=== PATIENT | male | born 1970 | race Caucasian/White ===

== ENCOUNTER 2017-03-30 22:58 | Inpatient (IN) | payer SELFPAY ==
[2017-03-30] MEDS ORDERED: TYLENOL PO STA (23:32)
[2017-03-30] MEDS ORDERED: NACL 0.9% 500 ML 500 ML IV ONE (23:32)
--- NOTE | 2017-03-31 00:01 | XRay Report ---
FINAL REPORT EXAM: XR CHEST 1V AP HISTORY: possible Sepsis TECHNIQUE: upright single view chest PRIORS: None. FINDINGS: Cardiac and mediastinal contours are unremarkable. No focal pulmonary infiltrate is identified. No pleural fluid collection seen. Pulmonary vasculature is unremarkable. IMPRESSION: Negative single-view chest
[2017-03-31 00:38] LABS: Basophils % (Auto) 0.4 % (0.0-1.8); Eosinophils % (Auto) 0.5 % (0.0-4.3); Hematocrit 40.3 % (35.5-45.6); Hemoglobin 13.6 gm/dl (11.8-15.2); Lymphocytes # (Auto) 1.2 K/mm3 (1.2-5.4); Lymphocytes % (Auto) 13.6 % (13.4-35.0); Mean Corpuscular HGB Conc 34 % (32-34); Mean Corpuscular Hemoglobin 30 pg (28-32); Mean Corpuscular Volume 90 fl (84-94); Monocytes % (Auto) 11.1 % (0.0-7.3); Platelet Count 186 K/mm3 (140-440); Red Blood Count 4.47 M/mm3 (3.65-5.03); Red Cell Distribution Width 13.2 % (13.2-15.2)
[2017-03-31 00:52] LABS: INR 0.9 (0.87-1.13)
[2017-03-31 00:54] LABS: Alanine Aminotransferase 55 units/L (7-56); Albumin 4.1 g/dL (3.9-5); BUN/Creatinine Ratio 20; Blood Urea Nitrogen 14 mg/dL (9-20); Calcium 9.6 mg/dL (8.4-10.2); Hemolysis Index 4
[2017-03-31 01:45] LABS: Bilirubin,Urine NEG (Negative); Blood,Urine SM (Negative); Color,Urine Straw (Yellow); Mucus,Urine FEW /HPF; Nitrite,Urine NEG (Negative); Urobilinogen,Urine < 2.0 mg/dL (<2.0); WBC,Urine < 1.0 /HPF (0.0-6.0)
[2017-03-31] MEDS ORDERED: SUBLIMAZE IV ONE (02:29)
[2017-03-31] MEDS ORDERED: NACL 0.9% 1000 ML 1,000 ML IV ONE (02:29)
[2017-03-31] MEDS ORDERED: ZOFRAN IV ONE (02:29)
[2017-03-31] MEDS ORDERED: TORADOL IV ONE (02:29)
--- NOTE | 2017-03-31 02:40 | Emergency Department Report ---
HPI - General Chief Complaint: Fever Time Seen by Provider: 03/31/17 02:18 - [facility] HPI: Room 3 The patient is a 47-year-old male presenting with chief complaint of flulike symptoms. The patient states for the past 5 days he's had a cough productive of green sputum and a sore throat. Patient denies rhinorrhea but admits to subjective fever, chills and myalgias. Patient denies nausea vomiting or diarrhea. The patient states there are other sick contacts in his home with the same symptoms. The patient currently gives his pain a score of 8/10 Location: [See above] Duration: 5 days Quality: Soreness Severity:8/10 Modifying factors: [see above] Context: [see above] Mode of transportation: [not driving] ED Past Medical Hx - Past Medical History Previous Medical History?: Yes Hx Hypertension: Yes - Surgical History Past Surgical History?: No - Family History Family history: no significant - Social History Smoking Status: Former Smoker (none 1 month) Substance Use Type: None (denies illicit drug use) ED Review of Systems ROS: Stated complaint: FEVER Other details as noted in HPI Constitutional: chills, fever, malaise ENT: throat pain Respiratory: cough Gastrointestinal: denies: nausea, vomiting, diarrhea Musculoskeletal: myalgia Physical Exam - Physical Exam Vital Signs: Vital Signs 03/30/17 03/31/17 03/31/17 23:26 01:15 01:20 Temperature 102.0 F H Pulse Rate 100 H Respiratory 20 16 Rate Blood Pressure 173/91 117/72 O2 Sat by Pulse 95 95 Oximetry 03/31/17 01:21 Temperature 99.6 F Pulse Rate Respiratory Rate Blood Pressure O2 Sat by Pulse Oximetry Physical Exam: GENERAL: The patient is well-developed well-nourished ill appearing and clammy male lying on stretcher HEENT: Normocephalic. Atraumatic. Extraocular motions are intact. Patient has moist mucous membranes. Patient appears pale and clammy. Oropharynx clear NECK: Supple. Trachea midline CHEST/LUNGS: Coarse breath sounds. There is no respiratory distress noted. HEART/CARDIOVASCULAR: Regular. There is no tachycardia. There is no gallop rub or murmur. ABDOMEN: Abdomen is soft, nontender. Patient has normal bowel sounds. There is no abdominal distention. SKIN: There is no rash. There is no edema. There is diaphoresis. NEURO: The patient is awake, alert, and oriented. The patient is cooperative. The patient has normal speech MUSCULOSKELETAL: There is no evidence of acute injury. ED Course Vital Signs 03/30/17 03/31/17 03/31/17 23:26 01:15 01:20 Temperature 102.0 F H Pulse Rate 100 H Respiratory 20 16 Rate Blood Pressure 173/91 117/72 O2 Sat by Pulse 95 95 Oximetry 03/31/17 01:21 Temperature 99.6 F Pulse Rate Respiratory Rate Blood Pressure O2 Sat by Pulse Oximetry ED Medical Decision Making - Lab Data Result diagrams: 03/30/17 23:46 03/30/17 23:46 Laboratory Tests 03/30/17 03/30/17 03/30/17 23:46 23:46 23:46 WBC 9.0 RBC 4.47 Hgb 13.6 Hct 40.3 MCV 90 MCH 30 MCHC 34 RDW 13.2 Plt Count 186 Lymph % (Auto) 13.6 [place] % (Auto) 11.1 H Eos % (Auto) 0.5 Baso % (Auto) 0.4 Lymph # 1.2 Walsh # 1.0 H Eos # 0.0 Baso # 0.0 Seg Neutrophils % 74.4 H Seg Neutrophils # 6.7 PT 12.6 INR 0.90 VBG pH Sodium 134 L Potassium 5.2 H Chloride 93.4 L Carbon Dioxide 24 Anion Gap 22 BUN 14 Creatinine 0.7 L Estimated GFR > 60 BUN/Creatinine Ratio 20 Glucose 376 H Lactic Acid Calcium 9.6 Total Bilirubin 0.50 AST 21 ALT 55 Alkaline Phosphatase 171 H Total Protein 7.4 Albumin 4.1 Albumin/Globulin Ratio 1.2 Urine Color Urine Turbidity Urine pH Ur Specific [place] Urine Protein Urine Glucose (UA) Urine Ketones Urine Blood Urine Nitrite Urine Bilirubin Urine Urobilinogen Ur Leukocyte Esterase Urine WBC (Auto) Urine RBC (Auto) Urine Mucus 03/30/17 03/30/17 03/31/17 23:46 23:46 01:03 WBC RBC Hgb Hct MCV MCH MCHC RDW Plt Count Lymph % (Auto) [place] % (Auto) Eos % (Auto) Baso % (Auto) Lymph # [place] # Eos # Baso # Seg Neutrophils % Seg Neutrophils # PT INR VBG pH 7.361 Sodium Potassium Chloride Carbon Dioxide Anion Gap BUN Creatinine Estimated GFR BUN/Creatinine Ratio Glucose Lactic Acid 2.40 H* Calcium Total Bilirubin AST ALT Alkaline Phosphatase Total Protein Albumin Albumin/Globulin Ratio Urine Color Straw Urine Turbidity Clear Urine pH 5.0 Ur Specific [place] 1.027 Urine Protein 100 mg/dl Urine Glucose (UA) >=500 Urine Ketones Tr Urine Blood Sm Urine Nitrite Neg Urine Bilirubin Neg Urine Urobilinogen < 2.0 Ur Leukocyte Esterase Neg Urine WBC (Auto) < 1.0 Urine RBC (Auto) 4.0 Urine Mucus Few - EKG Data -: EKG Interpreted by Me EKG shows normal: sinus rhythm Rate: normal - EKG Data When compared to previous EKG there are: previous EKG unavailable Interpretation: other (no ischemic changes seen) - Radiology Data Radiology results: report reviewed (chest x-ray), image reviewed (chest x-ray) interpreted by me: Chest x-ray-no focal infiltrates, no pneumothorax FINAL REPORT EXAM: XR CHEST 1V AP HISTORY: possible Sepsis TECHNIQUE: upright single view chest PRIORS: None. FINDINGS: Cardiac and mediastinal contours are unremarkable. No focal pulmonary infiltrate is identified. No pleural fluid collection seen. Pulmonary vasculature is unremarkable. IMPRESSION: Negative single-view chest Transcribed By: GUERRERO Dictated By: DELFINO REARDON MD Electronically Authenticated By: DELFINO REARDON MD Signed Date/Time: 03/30/171956 DD/ 56 TD/TT: 03/30/171956 - Differential Diagnosis influenza Critical care attestation.: If time is entered above; I have spent that time in minutes in the direct care of this critically ill patient, excluding procedure time. ED Disposition Clinical Impression: Cough, Myalgia, Sore throat, Viral syndrome, Diabetes mellitus Disposition: OP ADMIT IP TO THIS HOSP Is pt being admited?: Yes Does the pt Need Aspirin: Yes Condition: Fair Instructions: Diabetes Mellitus Type 2 in Adults (ED) Referrals: VIKTORIYA BECERRA MD [Primary Care Provider] - 3-5 Days Time of Disposition: 02:46 (hospitalist notified (Dr. Saima Koenig))
[2017-03-31] MEDS ORDERED: XOPENEX IH ONE (02:41)
[2017-03-31] MEDS ORDERED: ZOFRAN IV PRN (03:28)
[2017-03-31] MEDS ORDERED: DULCOLAX PR PRN (03:28)
[2017-03-31] MEDS ORDERED: MILK OF MAGNESIA PO PRN (03:28)
[2017-03-31] MEDS ORDERED: TYLENOL PO PRN (03:28)
[2017-03-31] MEDS ORDERED: cefTRIAXone 1 GM in NACL 0.9% 20 ML IV SCH ×2 (03:45→04:00)
--- NOTE | 2017-03-31 04:12 | History and Physical Report ---
History of Present Illness Date of examination: 03/31/17 Date of admission: 03/31/17 03:28 History of present illness: 47-year-old man with history of hypertension, diabetes comes emergency room with complaints of fever 5 days. Also complaining of a cough productive of blood tinge, green sputum, body aches, nausea vomiting. He's been taking NyQuil without improvement in his symptoms Review Of Systems: Constitutional: no weight loss Ears, eyes, nose, mouth and throat: no nasal congestion, no nasal discharge, no sinus pressure, blurry vision, diplopia Neck: No neck pain or rigidity. Cardiovascular: No chest pain, palpitations Respiratory: No shortness of breath, cough Gastrointestinal: No abdominal pain, hematochezia Genitourinary : no dysuria, frequency , hematuria Musculoskeletal: no muscle ache Integumentary: no rash, no pruritis Neurological: no parathesias, focal weakness Endocrine: no cold or heat intolerance, no polyuria or polydipsia Hematologic/Lymphatic: no easy bruising, no easy bleeding, no gland swelling Allergic/Immunologic: no urticaria, no angioedema. Medications and Allergies Allergies Allergy/AdvReac Type Severity Reaction Status Date / Time No Known Allergies Allergy Verified 03/30/17 23:32 Active Meds: Active Medications Acetaminophen (Tylenol) 650 mg PO Q4H PRN PRN Reason: Pain MILD(1-3)/Fever >100.5/SANTOYO Bisacodyl (Dulcolax) 10 mg MS QDAY PRN PRN Reason: Constipation unrelieved by MOM Enoxaparin Sodium (Lovenox) 40 mg SUB-Q QDAY@1000 MAJO Sodium Chloride (Nacl 0.9% 1000 Ml) 1,000 mls @ 125 mls/hr IV DIRECT MAJO Ceftriaxone Sodium 1 gm/ (Sodium Chloride) 20 mls @ 20 mls/10 min IV Q24H [facility] Magnesium Hydroxide (Milk Of Magnesia) 30 ml PO Q4H PRN PRN Reason: Constipation Ondansetron HCl (Zofran) 4 mg IV Q8H PRN PRN Reason: N/V unrelieved by Reglan Oseltamivir Phosphate (Tamiflu) 75 mg PO BID [facility] Stop: 04/04/17 22:01 Exam - Physical Exam Narrative exam: Gen. appearance: Patient lying in bed in no acute distress HEENT: Normocephalic/atraumatic, pupils equal round reactive to light, extra occular movement intact, no scleral icterus, no JVD or thyromegaly or nodule, neck is supple, mucous membrane moist, no erythema or exudate Heart: S1-S2, regular rate and rhythm Lungs: Coarse breath sounds breathing comfortable Abdomen: Positive bowel sounds, nontender, nondistended, no organomegaly Extremities: No edema, cyanosis, clubbing Neuro:: Oriented 3 , cranial nerves II-12 intact, speech, motor intact Skin: No rash, nodules, warm dry - Constitutional Vitals: Temp Pulse Resp BP Pulse Ox 99.6 F 74 19 117/72 95 03/31/17 01:21 03/31/17 02:59 03/31/17 02:59 03/31/17 01:15 03/31/17 01:20 Results - Labs CBC & Chem 7: 03/30/17 23:46 03/30/17 23:46 Labs: Abnormal lab results 03/30/17 03/30/17 03/30/17 Range/Units 23:46 23:46 23:46 [place] % (Auto) 11.1 H (0.0-7.3) % [place] # 1.0 H (0.0-0.8) K/mm3 Seg Neutrophils % 74.4 H (40.0-70.0) % Sodium 134 L (137-145) mmol/L Potassium 5.2 H (3.6-5.0) mmol/L Chloride 93.4 L (98-107) mmol/L Creatinine 0.7 L (0.8-1.5) mg/dL Glucose 376 H (75-100) mg/dL Lactic Acid 2.40 H* (0.7-2.0) mmol/L Alkaline Phosphatase 171 H (35-129) units/L 03/31/17 Range/Units 03:18 [place] % (Auto) (0.0-7.3) % [place] # (0.0-0.8) K/mm3 Seg Neutrophils % (40.0-70.0) % Sodium (137-145) mmol/L Potassium (3.6-5.0) mmol/L Chloride (98-107) mmol/L Creatinine (0.8-1.5) mg/dL Glucose (75-100) mg/dL Lactic Acid 2.10 H* (0.7-2.0) mmol/L Alkaline Phosphatase (35-129) units/L - Imaging and Cardiology EKG: image reviewed Chest x-ray: image reviewed Assessment and Plan Assessment SIRS Hypertension Diabetes Plan Admit to medicine Start IV fluids, IV Rocephin, Tamiflu, follow cultures Check fingersticks and initiate insulin sliding scale Continue appropriate outpatient medication DVT prophylaxis
[2017-03-31] MEDS ORDERED: D50W (25GM) Syringe IV PRN (04:16)
[2017-03-31] MEDS ORDERED: APRESOLINE IV PRN (04:17)
[2017-03-31] MEDS: TAMIFLU PO SCH ×2 (04:26→21:41)
[2017-03-31] MEDS: NACL 0.9% 1000 ML 1,000 ML IV SCH ×2 (07:59→18:19)
[2017-03-31] MEDS: NOVOLOG SUB-Q SCH ×4 (09:17→21:41)
[2017-03-31] MEDS ORDERED: LOVENOX SUB-Q SCH (10:00)
[2017-03-31] MEDS: LOVENOX SUB-Q SCH (11:09)
[2017-03-31] MEDS ORDERED: Fluarix Quad 2017-2018(36 MOS+ IM ONE (12:00)
--- NOTE | 2017-03-31 15:55 | Consultation ---
History of Present Illness - Reason for Consult Consult date: 03/31/17 sepsis Requesting physician: BERNARDO HORVATH - History of Present Illness 47 years old male with history of DM and HTN; admitted on 03/30 due to 5-day history of sore throat, runny nose, productive cough with green sputum and blood -tinged sputum, chills, body aches. patient was taking nyquil without improvement. Patient's and daughter have the same symptoms. She denies any diarrhea. He reports some nausea and vomiting. Patient did not have the flu shot this season. Patient works in construction. Denies alcohol, tobacco or drug abuse. In the emergency room, initial temperature 102, heart rate 100, respiration 20, O2 sat 95, blood pressure 173/91. White blood cell count 9. Hg 13.6. Plat 186. Creat 0.7. Glucose 376. UA Negative. Microbiology: Blood cultures: 03/30 pending Urine cultures: Current Antimicrobials: ceftriaxone 03/31 tamiflu 03/31 Previous Antimicrobials: Past History Past Medical History: diabetes, hypertension Past Surgical History: No surgical history Social history: no significant social history, , lives with family. denies: smoking, alcohol abuse, prescription drug abuse, IV drug use Family history: no significant family history Medications and Allergies Allergies Allergy/AdvReac Type Severity Reaction Status Date / Time No Known Allergies Allergy Verified 03/30/17 23:32 Active Meds: Active Medications Acetaminophen (Tylenol) 650 mg PO Q4H PRN PRN Reason: Pain MILD(1-3)/Fever >100.5/SANTOYO Last Admin: 03/31/17 09:15 Dose: 650 mg Bisacodyl (Dulcolax) 10 mg [place] QDAY PRN PRN Reason: Constipation unrelieved by MOM Dextrose (D50w (25gm) Syringe) 50 ml IV PRN PRN PRN Reason: Hypoglycemia Enoxaparin Sodium (Lovenox) 40 mg SUB-Q QDAY@1000 MAJO Last Admin: 03/31/17 11:09 Dose: 40 mg Hydralazine HCl (Apresoline) 5 mg IV Q6HR PRN PRN Reason: Hypertension Sodium Chloride (Nacl 0.9% 1000 Ml) 1,000 mls @ 125 mls/hr IV DIRECT MAJO Last Admin: 03/31/17 07:59 Dose: 125 mls/hr Ceftriaxone Sodium 1 gm/ (Sodium Chloride) 20 mls @ 20 mls/10 min IV Q24H [facility] Last Admin: 03/31/17 04:27 Dose: 20 mls/10 min Insulin Aspart (Novolog) 0 units SUB-Q ACHS MAJO PRN Reason: Protocol Last Admin: 03/31/17 13:06 Dose: 6 units Magnesium Hydroxide (Milk Of Magnesia) 30 ml PO Q4H PRN PRN Reason: Constipation Ondansetron HCl (Zofran) 4 mg IV Q8H PRN PRN Reason: N/V unrelieved by Reglan Oseltamivir Phosphate (Tamiflu) 75 mg PO BID [facility] Stop: 04/04/17 22:01 Last Admin: 03/31/17 04:26 Dose: 75 mg Oxycodone/Acetaminophen (Percocet 5/325) 1 tab PO Q6H PRN PRN Reason: Pain, Moderate (4-6) Physical Examination - Physical Exam Narrative exam: General appearance: Alert in NAD, conversant Eyes: anicteric sclerae, moist conjunctivae; no lid-lag; PERRLA HENT: Atraumatic; oropharynx clear Neck: Trachea midline; supple, no thyromegaly or lymphadenopathy Lungs: fred loud crackles/rhonchi CV: tachy Abdomen: Soft, non-tender; no masses or hepatosplenomegaly Extremities: No peripheral edema or extremity lymphadenopathy Skin: Normal temperature, turgor and texture; no rash, ulcers or subcutaneous nodules Psych: Appropriate affect, alert and oriented to person, place and time. Neuro: alert and oriented x 3. Moving all extermities Lines: No CVL / PICC - Constitutional Vitals: Vital Signs Temp Pulse Resp BP Pulse Ox 99.4 F 93 H 18 117/73 94 03/31/17 11:56 03/31/17 11:56 03/31/17 11:56 03/31/17 11:56 03/31/17 11:56 Temperature -Last 24 Hours Temperature 99.4 F Temperature 101.5 F Temperature 99.0 F Temperature 99.6 F Temperature 102.0 F Results - Labs CBC & Chem 7: 03/30/17 23:46 03/30/17 23:46 Labs: Abnormal lab results 03/30/17 03/30/17 03/30/17 Range/Units 23:46 23:46 23:46 [place] % (Auto) 11.1 H (0.0-7.3) % [place] # 1.0 H (0.0-0.8) K/mm3 Seg Neutrophils % 74.4 H (40.0-70.0) % Sodium 134 L (137-145) mmol/L Potassium 5.2 H (3.6-5.0) mmol/L Chloride 93.4 L (98-107) mmol/L Creatinine 0.7 L (0.8-1.5) mg/dL Glucose 376 H (75-100) mg/dL POC Glucose (70-105) Lactic Acid 2.40 H* (0.7-2.0) mmol/L Alkaline Phosphatase 171 H (35-129) units/L 03/31/1718 03/31/17 Range/Units 03:18 08:31 12:03 [place] % (Auto) (0.0-7.3) % [place] # (0.0-0.8) K/mm3 Seg Neutrophils % (40.0-70.0) % Sodium (137-145) mmol/L Potassium (3.6-5.0) mmol/L Chloride (98-107) mmol/L Creatinine (0.8-1.5) mg/dL Glucose (75-100) mg/dL POC Glucose 264 H 267 H (70-105) Lactic Acid 2.10 H* (0.7-2.0) mmol/L Alkaline Phosphatase (35-129) units/L Assessment and Plan Assessment: 1) Sepsis: Present on admission, manifested by fever, tachycardia. Etiology most likely Influenza-like syndrome / bronchitis / ?pneumonia. 2) Presumed Influenza-like syndrome -Influenza rapid ag neg -CXR neg 3) DM-poorly controlled Plan: -follow-up blood cultures -obtain respiratory cultures, C-reactive protein (CRP) -check Legionella urine antigen, Streptococcus pneumoniae urine antigen -continue tamiflu -increase ceftriaxone 2 g IV qday -repeat CXR in the AM Devika Tillman MD Infectious Diseases Specialist [facility] M [phone] O [phone]
--- NOTE | 2017-03-31 16:34 | Progress Note ---
Assessment and Plan Assessment and plan: 47-year-old man with history of hypertension, diabetes comes emergency room with complaints of fever 5 days accompained by cough productive of blood tinge , green sputum, body aches, nausea vomiting. He's been taking NyQuil without improvement in his symptoms. Patient's and daughter have the same symptoms. She denies any diarrhea. He reports some nausea and vomiting. Patient did not have the flu shot this season. SEPSIS -POA Hypertension Presumed influenza like syndrome * No evidence of pneumonia Diabetes mellitus with hyperglycemia Plan Continue supportive care Follow up cultures Continue IV fluids, IV Rocephin, Tamiflu, follow cultures Check fingersticks and initiate insulin sliding scale Continue appropriate outpatient medication DVT prophylaxis Plan discussed in detail with the patient. History Interval history: Patient seen and examined, in no acute distress. Hospitalist Physical - Physical exam Narrative exam: Gen. appearance: Patient lying in bed in no acute distress HEENT: Normocephalic/atraumatic, pupils equal round reactive to light, extra occular movement intact, no scleral icterus, no JVD or thyromegaly or nodule, neck is supple, mucous membrane moist, no erythema or exudate Heart: S1-S2, regular rate and rhythm Lungs: Coarse breath sounds breathing comfortable Abdomen: Positive bowel sounds, nontender, nondistended, no organomegaly Extremities: No edema, cyanosis, clubbing Neuro:: Oriented 3 , cranial nerves II-12 intact, speech, motor intact Skin: No rash, nodules, warm dry - Constitutional Vitals: Temp Pulse Resp BP Pulse Ox 99.4 F 93 H 18 117/73 94 03/31/17 11:56 03/31/17 11:56 03/31/17 11:56 03/31/17 11:56 03/31/17 11:56 General appearance: Present: no acute distress, well-nourished Results - Labs CBC & Chem 7: 03/30/17 23:46 03/30/17 23:46 Labs: Laboratory Last Values WBC 9.0 K/mm3 (4.5-11.0) 03/30/17 23:46 RBC 4.47 M/mm3 (3.65-5.03) 03/30/17 23:46 Hgb 13.6 gm/dl (11.8-15.2) 03/30/17 23:46 Hct 40.3 % (35.5-45.6) 03/30/17 23:46 MCV 90 fl (84-94) 03/30/17 23:46 MCH 30 pg (28-32) 03/30/17 23:46 MCHC 34 % (32-34) 03/30/17 23:46 RDW 13.2 % (13.2-15.2) 03/30/17 23:46 Plt Count 186 K/mm3 (140-440) 03/30/17 23:46 Lymph % (Auto) 13.6 % (13.4-35.0) 03/30/17 23:46 [place] % (Auto) 11.1 % (0.0-7.3) H 03/30/17 23:46 Eos % (Auto) 0.5 % (0.0-4.3) 03/30/17 23:46 Baso % (Auto) 0.4 % (0.0-1.8) 03/30/17 23:46 Lymph # 1.2 K/mm3 (1.2-5.4) 03/30/17 23:46 [place] # 1.0 K/mm3 (0.0-0.8) H 03/30/17 23:46 Eos # 0.0 K/mm3 (0.0-0.4) 03/30/17 23:46 Baso # 0.0 K/mm3 (0.0-0.1) 03/30/17 23:46 Seg Neutrophils % 74.4 % (40.0-70.0) H 03/30/17 23:46 Seg Neutrophils # 6.7 K/mm3 (1.8-7.7) 03/30/17 23:46 PT 12.6 Sec. (12.2-14.9) 03/30/17 23:46 INR 0.90 (0.87-1.13) 03/30/17 23:46 VBG pH 7.361 (7.320-7.420) 03/30/17 23:46 Sodium 134 mmol/L (137-145) L 03/30/17 23:46 Potassium 5.2 mmol/L (3.6-5.0) H 03/30/17 23:46 Chloride 93.4 mmol/L (98-107) L 03/30/17 23:46 Carbon Dioxide 24 mmol/L (22-30) 03/30/17 23:46 Anion Gap 22 mmol/L 03/30/17 23:46 BUN 14 mg/dL (9-20) 03/30/17 23:46 Creatinine 0.7 mg/dL (0.8-1.5) L 03/30/17 23:46 Estimated GFR > 60 ml/min 03/30/17 23:46 BUN/Creatinine Ratio 20 % 03/30/17 23:46 Glucose 376 mg/dL (75-100) H 03/30/17 23:46 POC Glucose 267 (70-105) H 03/31/17 12:03 Lactic Acid 2.10 mmol/L (0.7-2.0) H* 03/31/17 03:18 Calcium 9.6 mg/dL (8.4-10.2) 03/30/17 23:46 Total Bilirubin 0.50 mg/dL (0.1-1.2) 03/30/17 23:46 AST 21 units/L (5-40) 03/30/17 23:46 ALT 55 units/L (7-56) 03/30/17 23:46 Alkaline Phosphatase 171 units/L (35-129) H 03/30/17 23:46 Total Protein 7.4 g/dL (6.3-8.2) 03/30/17 23:46 Albumin 4.1 g/dL (3.9-5) 03/30/17 23:46 Albumin/Globulin Ratio 1.2 % 03/30/17 23:46 Urine Color Straw (Yellow) 03/31/17 01:03 Urine Turbidity Clear (Clear) 03/31/17 01:03 Urine pH 5.0 (5.0-7.0) 03/31/17 01:03 Ur Specific [place] 1.027 (1.003-1.030) 03/31/17 01:03 Urine Protein 100 mg/dl mg/dL (Negative) 03/31/17 01:03 Urine Glucose (UA) >=500 mg/dL (Negative) 03/31/17 01:03 Urine Ketones Tr mg/dL (Negative) 03/31/17 01:03 Urine Blood Sm (Negative) 03/31/17 01:03 Urine Nitrite Neg (Negative) 03/31/17 01:03 Urine Bilirubin Neg (Negative) 03/31/17 01:03 Urine Urobilinogen < 2.0 mg/dL (<2.0) 03/31/17 01:03 Ur Leukocyte Esterase Neg (Negative) 03/31/17 01:03 Urine WBC (Auto) < 1.0 /HPF (0.0-6.0) 03/31/17 01:03 Urine RBC (Auto) 4.0 /HPF (0.0-6.0) 03/31/17 01:03 U Epithel Cells (Auto) < 1.0 /HPF (0-13.0) 03/31/17 01:03 Urine Mucus Few /HPF 03/31/17 01:03 Influenza A (Rapid) Negative (Negative) 03/31/17 02:57 Influenza B (Rapid) Negative (Negative) 03/31/17 02:57 - Imaging and Cardiology Chest x-ray: image reviewed (negative)
[2017-03-31] MEDS: PERCOCET 5/325 PO PRN (16:43)
[2017-04-01] MEDS: NACL 0.9% 1000 ML 1,000 ML IV SCH ×3 (07:30→23:35)
[2017-04-01 08:18] LABS: Basophils % (Auto) 0.2 % (0.0-1.8); Eosinophils % (Auto) 0.5 % (0.0-4.3); Hematocrit 36.8 % (35.5-45.6); Hemoglobin 12.6 gm/dl (11.8-15.2); Lymphocytes # (Auto) 2.3 K/mm3 (1.2-5.4); Lymphocytes % (Auto) 27.2 % (13.4-35.0); Mean Corpuscular HGB Conc 34 % (32-34); Mean Corpuscular Hemoglobin 31 pg (28-32); Mean Corpuscular Volume 91 fl (84-94); Monocytes # (Auto) 0.9 K/mm3 (0.0-0.8); Monocytes % (Auto) 10.9 % (0.0-7.3); Platelet Count 155 K/mm3 (140-440); Red Blood Count 4.05 M/mm3 (3.65-5.03); Red Cell Distribution Width 13.3 % (13.2-15.2)
[2017-04-01 08:41] LABS: BUN/Creatinine Ratio 15; Blood Urea Nitrogen 9 mg/dL (9-20); Calcium 8.7 mg/dL (8.4-10.2); Hemolysis Index 9
[2017-04-01] MEDS: NOVOLOG SUB-Q SCH ×5 (08:46→23:32)
[2017-04-01] MEDS: LOVENOX SUB-Q SCH (09:41)
[2017-04-01] MEDS: TAMIFLU PO SCH ×2 (09:42→23:33)
[2017-04-01] MEDS ORDERED: ROCEPHIN/NS 2 GM/100 ML 2 GM/100 ML BAG IV SCH (10:00)
[2017-04-01] MEDS ORDERED: cefTRIAXone 2 GM in NACL 0.9% 20 ML IV SCH (10:00)
--- NOTE | 2017-04-01 12:26 | Progress Note ---
Assessment and Plan Assessment: 1) Sepsis: Still fever. Etiology most likely Influenza-like syndrome / bronchitis / ?pneumonia. 2) Presumed Influenza-like syndrome -Influenza rapid ag neg -CXR neg -CRP = 11.30 3) DM-poorly controlled Plan: -follow-up blood cultures -f/u respiratory cultures -f/u Legionella urine antigen, Streptococcus pneumoniae urine antigen -continue tamiflu -continue ceftriaxone 2 g IV qday -f/u repeat CXR Malena Stoddard NP for Dr. Devika Tillman MD Infectious Diseases Specialist [facility] M [phone] O [phone] Subjective Date of service: 04/01/17 Interval history: Microbiology: Blood cultures: 03/30 pending Urine cultures: Current Antimicrobials: ceftriaxone 03/31 tamiflu 03/31 Previous Antimicrobials: Objective - Exam Narrative Exam: General appearance: Alert in NAD, conversant Eyes: anicteric sclerae, moist conjunctivae; no lid-lag; PERRLA HENT: Atraumatic; oropharynx clear Neck: Trachea midline; supple, no thyromegaly or lymphadenopathy Lungs: fred loud crackles/rhonchi CV: tachy Abdomen: Soft, non-tender; no masses or hepatosplenomegaly Extremities: No peripheral edema or extremity lymphadenopathy Skin: Normal temperature, turgor and texture; no rash, ulcers or subcutaneous nodules Psych: Appropriate affect, calm and cooperative Neuro: alert and oriented x 3. Moving all extermities Lines: No CVL / PICC - Constitutional Vitals: Vital Signs Temp Pulse Resp BP Pulse Ox 99.1 F 81 20 132/88 97 04/01/17 07:41 04/01/17 07:41 04/01/17 07:41 04/01/17 07:41 04/01/17 07:41 Temperature -Last 24 Hours Temperature 99.1 F Temperature 100.2 F Temperature 98.7 F - Labs CBC & Chem 7: 04/01/17 07:40 04/01/17 07:40 Labs: Abnormal lab results 03/31/17 03/31/17 03/31/17 Range/Units 16:58 17:38 21:25 [place] % (Auto) (0.0-7.3) % [place] # (0.0-0.8) K/mm3 Chloride (98-107) mmol/L Creatinine (0.8-1.5) mg/dL Glucose (75-100) mg/dL POC Glucose 218 H 233 H (70-105) C-Reactive Protein 11.30 H (0.00-1.30) mg/dL 04/01/17 04/01/17 04/01/17 Range/Units 06:13 07:40 07:40 [place] % (Auto) 10.9 H (0.0-7.3) % [place] # 0.9 H (0.0-0.8) K/mm3 Chloride 96.1 L (98-107) mmol/L Creatinine 0.6 L (0.8-1.5) mg/dL Glucose 240 H (75-100) mg/dL POC Glucose 220 H (70-105) C-Reactive Protein (0.00-1.30) mg/dL
--- NOTE | 2017-04-01 15:52 | Progress Note ---
Assessment and Plan Assessment and plan: 47-year-old man with history of hypertension, diabetes comes emergency room with complaints of fever 5 days accompained by cough productive of blood tinge , green sputum, body aches, nausea vomiting. He's been taking NyQuil without improvement in his symptoms. Patient's and daughter have the same symptoms. She denies any diarrhea. He reports some nausea and vomiting. Patient did not have the flu shot this season. SEPSIS -POA Hypertension Presumed influenza like syndrome * No evidence of pneumonia Diabetes mellitus with hyperglycemia Plan Continue supportive care Follow up cultures Continue IV fluids, IV Rocephin, Tamiflu, follow cultures Check fingersticks and Adjust insulin sliding scale Continue appropriate outpatient medication DVT prophylaxis Plan discussed in detail with the patient. History Interval history: Patient seen and examined, in no acute distress. Still lethargic, still with some cough. Also running low-grade fever otherwise no other adverse events reported by nursing staff Hospitalist Physical - Physical exam Narrative exam: VITAL SIGNS: Reviewed. GENERAL: The patient appeared well nourished and normally developed. Vital signs as documented. HEAD: No signs of head trauma. EYES: Pupils are equal. Extraocular motions intact. EARS: Hearing grossly intact. MOUTH: Oropharynx is normal. NECK: No adenopathy, no JVD. CHEST: Chest with coarse breath sounds bilaterally. No wheezes. CARDIAC: Regular rate and rhythm. S1 and S2, without murmurs, gallops, or rubs. VASCULAR: No Edema. Peripheral pulses normal and equal in all extremities. ABDOMEN: Soft, without detectable tenderness. No sign of distention. No rebound or guarding, and no masses palpated. Bowel Sounds normal. MUSCULOSKELETAL: Good range of motion of all major joints. Extremities without clubbing, cyanosis or edema. NEUROLOGIC EXAM: Alert and oriented x 3. No focal sensory or strength deficits. Speech normal. Follows commands. PSYCHIATRIC: Mood normal. SKIN: No rash or lesions. - Constitutional Vitals: Temp Pulse Resp BP Pulse Ox 98.4 F 80 18 130/84 99 04/01/17 15:15 04/01/17 15:15 04/01/17 15:15 04/01/17 15:15 04/01/17 15:15 General appearance: Present: no acute distress, well-nourished Results - Labs CBC & Chem 7: 04/01/17 07:40 04/01/17 07:40 Labs: Laboratory Last Values WBC 8.3 K/mm3 (4.5-11.0) 04/01/17 07:40 RBC 4.05 M/mm3 (3.65-5.03) 04/01/17 07:40 Hgb 12.6 gm/dl (11.8-15.2) 04/01/17 07:40 Hct 36.8 % (35.5-45.6) 04/01/17 07:40 MCV 91 fl (84-94) 04/01/17 07:40 MCH 31 pg (28-32) 04/01/17 07:40 MCHC 34 % (32-34) 04/01/17 07:40 RDW 13.3 % (13.2-15.2) 04/01/17 07:40 Plt Count 155 K/mm3 (140-440) 04/01/17 07:40 Lymph % (Auto) 27.2 % (13.4-35.0) 04/01/17 07:40 [place] % (Auto) 10.9 % (0.0-7.3) H 04/01/17 07:40 Eos % (Auto) 0.5 % (0.0-4.3) 04/01/17 07:40 Baso % (Auto) 0.2 % (0.0-1.8) 04/01/17 07:40 Lymph # 2.3 K/mm3 (1.2-5.4) 04/01/17 07:40 [place] # 0.9 K/mm3 (0.0-0.8) H 04/01/17 07:40 Eos # 0.0 K/mm3 (0.0-0.4) 04/01/17 07:40 Baso # 0.0 K/mm3 (0.0-0.1) 04/01/17 07:40 Seg Neutrophils % 61.2 % (40.0-70.0) 04/01/17 07:40 Seg Neutrophils # 5.1 K/mm3 (1.8-7.7) 04/01/17 07:40 PT 12.6 Sec. (12.2-14.9) 03/30/17 23:46 INR 0.90 (0.87-1.13) 03/30/17 23:46 VBG pH 7.361 (7.320-7.420) 03/30/17 23:46 Sodium 138 mmol/L (137-145) 04/01/17 07:40 Potassium 4.6 mmol/L (3.6-5.0) 04/01/17 07:40 Chloride 96.1 mmol/L (98-107) L 04/01/17 07:40 Carbon Dioxide 25 mmol/L (22-30) 04/01/17 07:40 Anion Gap 22 mmol/L 04/01/17 07:40 BUN 9 mg/dL (9-20) 04/01/17 07:40 Creatinine 0.6 mg/dL (0.8-1.5) L 04/01/17 07:40 Estimated GFR > 60 ml/min 04/01/17 07:40 BUN/Creatinine Ratio 15 % 04/01/17 07:40 Glucose 240 mg/dL (75-100) H 04/01/17 07:40 POC Glucose 220 (70-105) H 04/01/17 06:13 Lactic Acid 1.10 mmol/L (0.7-2.0) 03/31/17 23:50 Calcium 8.7 mg/dL (8.4-10.2) 04/01/17 07:40 Total Bilirubin 0.50 mg/dL (0.1-1.2) 03/30/17 23:46 AST 21 units/L (5-40) 03/30/17 23:46 ALT 55 units/L (7-56) 03/30/17 23:46 Alkaline Phosphatase 171 units/L (35-129) H 03/30/17 23:46 C-Reactive Protein 11.30 mg/dL (0.00-1.30) H 03/31/17 17:38 Total Protein 7.4 g/dL (6.3-8.2) 03/30/17 23:46 Albumin 4.1 g/dL (3.9-5) 03/30/17 23:46 Albumin/Globulin Ratio 1.2 % 03/30/17 23:46 Urine Color Straw (Yellow) 03/31/17 01:03 Urine Turbidity Clear (Clear) 03/31/17 01:03 Urine pH 5.0 (5.0-7.0) 03/31/17 01:03 Ur Specific [place] 1.027 (1.003-1.030) 03/31/17 01:03 Urine Protein 100 mg/dl mg/dL (Negative) 03/31/17 01:03 Urine Glucose (UA) >=500 mg/dL (Negative) 03/31/17 01:03 Urine Ketones Tr mg/dL (Negative) 03/31/17 01:03 Urine Blood Sm (Negative) 03/31/17 01:03 Urine Nitrite Neg (Negative) 03/31/17 01:03 Urine Bilirubin Neg (Negative) 03/31/17 01:03 Urine Urobilinogen < 2.0 mg/dL (<2.0) 03/31/17 01:03 Ur Leukocyte Esterase Neg (Negative) 03/31/17 01:03 Urine WBC (Auto) < 1.0 /HPF (0.0-6.0) 03/31/17 01:03 Urine RBC (Auto) 4.0 /HPF (0.0-6.0) 03/31/17 01:03 U Epithel Cells (Auto) < 1.0 /HPF (0-13.0) 03/31/17 01:03 Urine Mucus Few /HPF 03/31/17 01:03 HIV 1&2 Antibody Rapid Non react (Non React) 04/01/17 14:15 HIV P24 Antigen Non react (Non React) 04/01/17 14:15 Influenza A (Rapid) Negative (Negative) 03/31/17 02:57 Influenza B (Rapid) Negative (Negative) 03/31/17 02:57
--- NOTE | 2017-04-01 16:27 | XRay Report ---
FINAL REPORT EXAM: XR CHEST ROUTINE 2V HISTORY: influneza with fever eval for pneumonia TECHNIQUE: Two view chest PA and lateral PRIORS: None. FINDINGS: Cardiac and mediastinal contours are unremarkable. No focal pulmonary infiltrate is identified. No pleural fluid collection seen. Pulmonary vasculature is unremarkable. IMPRESSION: Negative two-view chest
[2017-04-01] MEDS: PERCOCET 5/325 PO PRN (18:02)
[2017-04-02] MEDS: NACL 0.9% 1000 ML 1,000 ML IV SCH (06:23)
[2017-04-02] MEDS: NOVOLOG SUB-Q SCH ×2 (07:30→11:30)
--- NOTE | 2017-04-02 09:19 | Discharge Summary ---
Providers - Providers Date of Admission: 03/31/17 03:28 Attending physician: BERNARDO HORVATH MD 03/31/17 11:55 Consult to Physician [CONS] Routine Consulting Provider: ED CALDERA Reason For Exam: sepsis Place consult to:: DR. RIVERA Notified:: TEXT TO DR. RIVERA Phone number called:: [phone] Time called:: 12:28 Comment:: TEXT TO DR. RIVERA Primary care physician: VIKTORIYA BECERRA Hospitalization Reason for admission: sepsis Condition: Stable Hospital course: 47-year-old man with history of hypertension, diabetes comes emergency room with complaints of fever 5 days accompained by cough productive of blood tinge , green sputum, body aches, nausea vomiting. He's been taking NyQuil without improvement in his symptoms. Patient suspected that he was status post to somewhat influenza. Patient's and daughter have the same symptoms. She denies any diarrhea. He reports some nausea and vomiting. Patient did not have the flu shot this season. On admission had intermittent low-grade fever was noted to be sepsis which was present on admission. We'll started on antibiotic treatment with the help of infectious disease. Chest x-ray remained negative. He is clinically improved today. Diabetic education was provided to the patient patient will complete Levaquin 750 mg by mouth daily for 7 days and a 5 day Tamiflu dose. Discharge diagnoses SEPSIS Hypertension Presumed influenza like syndrome Diabetes mellitus with hyperglycemia Disposition: -01 TO HOME OR SELFCARE Time spent for discharge: 35 mins Core Measure Documentation - Palliative Care Palliative Care/ Comfort Measures: Not Applicable - Core Measures Any of the following diagnoses?: none - VTE Discharge Requirements Deep Vein Thrombosis/Pulmonary Embolism Present on Admission: No Exam - Physical Exam Narrative exam: VITAL SIGNS: Reviewed. GENERAL: The patient appeared well nourished and normally developed. Vital signs as documented. HEAD: No signs of head trauma. EYES: Pupils are equal. Extraocular motions intact. EARS: Hearing grossly intact. MOUTH: Oropharynx is normal. NECK: No adenopathy, no JVD. CHEST: Chest with diminished breath sounds bilaterally. No wheezes. CARDIAC: Regular rate and rhythm. S1 and S2, without murmurs, gallops, or rubs. VASCULAR: No Edema. Peripheral pulses normal and equal in all extremities. ABDOMEN: Soft, without detectable tenderness. No sign of distention. No rebound or guarding, and no masses palpated. Bowel Sounds normal. MUSCULOSKELETAL: Good range of motion of all major joints. Extremities without clubbing, cyanosis or edema. NEUROLOGIC EXAM: Alert and oriented x 3. No focal sensory or strength deficits. Speech normal. Follows commands. PSYCHIATRIC: Mood normal. SKIN: No rash or lesions. - Constitutional Vitals: Temp Pulse Resp BP Pulse Ox 97.8 F 76 20 156/99 95 04/01/17 23:35 04/01/17 23:35 04/01/17 23:35 04/01/17 23:35 04/01/17 23:35 Plan Activity: advance as tolerated Diet: regular, diabetic Follow up with: VIKTORIYA BECERRA MD [Primary Care Provider] - 3-5 Days Prescriptions: Levofloxacin [Levaquin] 750 mg PO QDAY #7 tablet Oseltamivir [Tamiflu] 75 mg PO BID #8 capsule
[2017-04-02 10:01] VITALS: BP 159/100
[2017-04-02] MEDS: LOVENOX SUB-Q SCH (10:51)
[2017-04-02] MEDS: TAMIFLU PO SCH (10:52)
--- NOTE | 2017-04-02 10:54 | Progress Note ---
Assessment and Plan Assessment: 1) Sepsis: Still fever. Etiology most likely Influenza-like syndrome / bronchitis / ?pneumonia. 2) Presumed Influenza-like syndrome -Influenza rapid ag neg -CXR neg -CRP = 11.30 -repeat CXR 04/01 negative -blood cx 03/30 negative -HIV non reactive 3) DM-poorly controlled Plan: -f/u respiratory cultures -f/u Legionella urine antigen, Streptococcus pneumoniae urine antigen -continue tamiflu -continue ceftriaxone 2 g IV qday -f/u repeat CXR -ok to discharge on levaquin 750 mg po daily to complete 7 days until 04/07 and tamiflu 75 mg po BID to complete 5 days until 04/04 Malena Stoddard NP for Dr. Devika Tillman MD Infectious Diseases Specialist [facility] M [phone] O [phone] Subjective Date of service: 04/02/17 Interval history: I want to go home, Microbiology: Blood cultures: 03/30 pending Urine cultures: Current Antimicrobials: ceftriaxone 03/31 tamiflu 03/31 Previous Antimicrobials: Objective - Exam Narrative Exam: General appearance: Alert in NAD, conversant Eyes: anicteric sclerae, moist conjunctivae; no lid-lag; PERRLA HENT: Atraumatic; oropharynx clear Neck: Trachea midline; supple, no thyromegaly or lymphadenopathy Lungs: diminish breath sounds bilaterally CV: RRR S1 and S2 Abdomen: Soft, non-tender; no masses or hepatosplenomegaly Extremities: No peripheral edema or extremity lymphadenopathy Skin: Normal temperature, turgor and texture; no rash, ulcers or subcutaneous nodules Psych: Appropriate affect, calm and cooperative Neuro: alert and oriented x 3. Moving all extermities Lines: No CVL / PICC - Constitutional Vitals: Vital Signs Temp Pulse Resp BP Pulse Ox 97.6 F 71 20 159/100 97 04/02/17 07:58 04/02/17 07:59 04/02/17 07:58 04/02/17 07:58 04/02/17 07:59 Temperature -Last 24 Hours Temperature 97.6 F Temperature 97.8 F Temperature 98.4 F - Labs CBC & Chem 7: 04/01/17 07:40 04/01/17 07:40 Labs: Abnormal lab results 04/01/17 04/01/1704/01/18 Range/Units 12:18 16:44 22:48 POC Glucose 213 H 257 H 198 H (70-105) 04/02/17 Range/Units 06:32 POC Glucose 200 H (70-105)
== END 2017-04-02 14:00 | disposition home or self-care (01) | DRG 872 ==
LOC: ED 22:58 → 3A 03-31 03:28
PROVIDERS: ADMIT Internal Medicine; ATTEND Internal Medicine
PROC: 3E0234Z Introduction of Serum, Toxoid and Vaccine into Muscle, Percutaneous Approach (ICD-10-PCS; principal; 2017-03-31)
DX: A41.9 Sepsis, unspecified organism (principal); I10 Essential (primary) hypertension; E11.65 Type 2 diabetes mellitus with hyperglycemia; J10.89 Influenza due to other identified influenza virus with other manifestations; M79.1 Myalgia; B34.9 Viral infection, unspecified; Z23 Encounter for immunization
CPT/HCPCS: 36415; 71045; 71046; 80048; 80053; 81001; 82140; 82805; 82962; 85025; 85610; 86140; 87040; 87400; 87806; 90686; 93005; 93010; 94640; 96374; 96375; J0696; J1650; J1815; J1885; J2405; J3010; J7030